=== PATIENT | female | born 1970 | race Hispanic/Latino ===

== ENCOUNTER 2017-07-17 09:02 | Emergency (ER) | payer MEDICARE, OTHER ==
[2017-07-17 09:16] VITALS: BP 130/92; PULSE 108; RESP 16; TEMP 98.1; O2SAT 95
--- NOTE | 2017-07-17 10:28 | ED PDOC ---
HPI: Psych/Substance Abuse Time Seen by Provider: 07/17/17 09:18 Chief Complaint (Nursing): Psychiatric Evaluation History Per: Patient (states she was hearing bad voices this morning. she is feeling better. she denies SI/HI.) History/Exam Limitations: no limitations Onset/Duration Of Symptoms: Sudden Onset Current Symptoms Are (Timing): Better Suicide/Self Injury Attempted (Context): None Modifying Factor(s): None Severity: Moderate Associated Symptoms: Anxiety. denies: Anger, Agitation, Depression, Paranoia, Suicidal Thoughts, Suicidal Plan Past Medical History Vital Signs: Last Vital Signs Temp 98.1 F 07/17/17 09:13 Pulse 108 H 07/17/17 09:13 Resp 16 07/17/17 09:13 BP 130/92 H 07/17/17 09:13 Pulse Ox 95 07/17/17 09:13 - Medical History PMH: Asthma, Bipolar Disorder, Diabetes (diet controlled), Schizophrenia Denies: Hepatitis, HIV, HTN, Seizures, Sexually Transmitted Disease - Family History Family History: States: Unknown Family Hx - Home Medications Home Medications: Ambulatory Orders Medication Instructions Recorded ARIPiprazole [Abilify] 01/11/17 Divalproex [Depakote ER(ONCE 01/11/17 DAILY)] Ziprasidone [Geodon Cap] 01/11/17 fluvoxaMINE [Luvox] 01/11/17 - Allergies Allergies/Adverse Reactions: Allergies Allergy/AdvReac Type Severity Reaction Status Date / Time No Known Allergies Allergy Verified 04/20/16 10:49 Review of Systems ROS Statement: Except As Marked, All Systems Reviewed And Found Negative Constitutional: Negative for: Fever Psych: Positive for: Anxiety. Negative for: Suicidal ideation, Withdrawal Physical Exam - Reviewed Nursing Documentation Reviewed: Yes Vital Signs Reviewed: Yes - Physical Exam Appears: Positive for: Well, Non-toxic, No Acute Distress Head Exam: Positive for: ATRAUMATIC, NORMAL INSPECTION, NORMOCEPHALIC Skin: Positive for: Normal Color, Warm, DRY Eye Exam: Positive for: Normal appearance, EOMI, PERRL ENT: Positive for: Normal ENT Inspection Neck: Positive for: Normal, Painless ROM Cardiovascular/Chest: Positive for: Regular Rate, Rhythm Respiratory: Positive for: CNT, Normal Breath Sounds Gastrointestinal/Abdominal: Positive for: Normal Exam, Bowel Sounds, Soft Back: Positive for: Normal Inspection Extremity: Positive for: Normal ROM Neurologic/Psych: Positive for: Alert, Oriented - ECG O2 Sat by Pulse Oximetry: 95 Disposition - Clinical Impression Clinical Impression: Schizophrenia - Patient ED Disposition Is Patient to be Admitted: No Doctor Will See Patient In The: Office Counseled Patient/Family Regarding: Diagnosis, Need For Followup - Disposition Referrals: [facility] [Outside] Disposition Time: 10:00 Condition: STABLE Additional Instructions: Continue your medications as prescribed. Instructions: Schizophrenia (ED) Forms: [employer] Connect (German) - POA Present On Arrival: None
== END 2017-07-17 10:37 | disposition home or self-care (01) ==
LOC: H.ER 09:02
DX: F20.9 Schizophrenia, unspecified (principal); E11.9 Type 2 diabetes mellitus without complications; F31.9 Bipolar disorder, unspecified

== ENCOUNTER 2017-07-22 21:00 | Inpatient (IN) | payer MEDICARE, SELFPAY ==
--- NOTE | 2017-07-22 21:49 | ED PDOC ---
HPI: Psych/Substance Abuse Time Seen by Provider: 07/22/17 21:23 Chief Complaint (Nursing): Psychiatric Evaluation Chief Complaint (Provider): Psych evaluation History Per: Patient History/Exam Limitations: no limitations Onset/Duration Of Symptoms: Hrs Additional Complaint(s): Patient is a 46 y/o female with a past medical history of schizophrenia presenting to the emergency department for a psych evaluation with complaints of feeling unwell, tactile hallucinations, and thoughts of . States that she is non-compliant with her medication (Geodon). Denies homicidal ideation, visual or auditory hallucinations. PCP: none provided. Past Medical History Reviewed: Historical Data, Nursing Documentation, Vital Signs Vital Signs: Last Vital Signs Temp 97.9 F 07/22/17 21:19 Pulse 82 07/22/17 21:19 Resp 16 07/22/17 21:19 BP 136/81 07/22/17 21:19 Pulse Ox 98 07/22/17 21:19 - Medical History PMH: Asthma, Bipolar Disorder, Diabetes (diet controlled), Schizophrenia Denies: Hepatitis, HIV, HTN, Seizures, Sexually Transmitted Disease - Family History Family History: States: Unknown Family Hx - Social History Current smoker - smoking cessation education provided: No Ex-Smoker (has not smoked in the last 12 months): No Alcohol: None Drugs: Denies - Home Medications Home Medications: Ambulatory Orders Medication Instructions Recorded Albuterol HFA [Ventolin HFA 90 1 puff INH PRN PRN 07/22/17 mcg/actuation (8 g)] Ziprasidone [Geodon] 60 mg PO BID 07/22/17 - Allergies Allergies/Adverse Reactions: Allergies Allergy/AdvReac Type Severity Reaction Status Date / Time No Known Allergies Allergy Verified 04/20/16 10:49 Review of Systems ROS Statement: Except As Marked, All Systems Reviewed And Found Negative Psych: Positive for: Other (tactile hallucinations, thoughts of , no active plan of SI, and no visual/auditory hallucinations) Physical Exam - Reviewed Nursing Documentation Reviewed: Yes Vital Signs Reviewed: Yes - Physical Exam Appears: Positive for: Well, Non-toxic Head Exam: Positive for: ATRAUMATIC, NORMAL INSPECTION, NORMOCEPHALIC Skin: Positive for: Normal Color, Warm, Dry Eye Exam: Positive for: Normal appearance Neck: Positive for: Normal, Painless ROM, Supple Respiratory: Negative for: Accessory Muscle Use, Respiratory Distress Neurologic/Psych: Positive for: Alert (with normal thought processing), Oriented (x3) - Laboratory Results Result Diagrams: 07/22/17 21:48 07/22/17 22:40 - ECG ECG Rhythm: Positive for: Normal QRS, Normal ST Segment O2 Sat by Pulse Oximetry: 98 (RA) Pulse Ox Interpretation: Normal Medical Decision Making Medical Decision Making: Time: 19:48 Initial impression: Psych evaluation Initial plan: Labs ED Urine Crisis evaluation 1:1 Sitter for patient and staff safety Reevaluation Pt will be admitted for schizoaffective d/o under MD Amanuel Scribe Attestation: Documented by Deanne Parks, acting as a scribe for FEMI Rodriguez. Provider Scribe Attestation: All medical record entries made by the Scribe were at my direction and personally dictated by me. I have reviewed the chart and agree that the record accurately reflects my personal performance of the history, physical exam, medical decision making, and the department course for this patient. I have also personally directed, reviewed, and agree with the discharge instructions and disposition. Disposition - Clinical Impression Clinical Impression: Schizoaffective disorder - Patient ED Disposition Is Patient to be Admitted: Yes - Disposition Disposition Time: 23:12 Condition: STABLE Forms: [employer] (Armenian) - Pt Status Changed To: Hospital Disposition Of: Inpatient - Admit Certification Admit to Inpatient:: After my assessment, the patient will require hospitalization for at least two midnights. This is because of the severity of symptoms shown, intensity of services needed, and/or the medical risk in this patient being treated as an outpatient.
[2017-07-22 22:38] LABS: BASO # 0.1 K/uL (0.0-0.2); BASO % 0.9 % (0.0-2.0); EOS # 0.1 K/uL (0.0-0.7); EOS % 1.1 % (0.0-4.0); HEMATOCRIT 38.9 % (34.0-47.0); LYMPH # 2.6 K/uL (1.0-4.3); LYMPH % 30.8 % (20.0-40.0); MEAN CELL VOLUME 80.8 fl (81.0-99.0); MEAN CORPUSCULAR HEMOGLOBIN 27.4 pg (27.0-31.0); MEAN PLATELET VOLUME 7.9 fl (7.2-11.7); MONO # 0.5 K/uL (0.0-0.8); MONO % 6.5 % (0.0-10.0); NEUT # 5.1 K/uL (1.8-7.0); NEUT % 60.7 % (50.0-75.0); RED CELL DISTRIBUTION WIDTH 13.7 % (11.5-14.5); WHITE BLOOD COUNT 8.4 K/uL (4.8-10.8)
[2017-07-22 22:50] LABS: ALB/GLOB RATIO 1.4 (1.0-2.1); ALCOHOL SERUM < 10 mg/dl (0-10); ALKALINE PHOSPHATASE 87 U/L (38-126); ALT/SGPT 54 U/L (9-52); AST/SGOT 25 U/L (14-36); BILIRUBIN,TOTAL 0.4 mg/dl (0.2-1.3); BLOOD UREA NITROGEN 10 mg/dl (7-17); CALCIUM 9.4 mg/dL (8.4-10.2); CARBON DIOXIDE 23 mmol/L (22-30); CHLORIDE 101 mmol/L (98-107); GFR AFRICAN-AMERICAN > 60; GLUCOSE,RANDOM 277 mg/dL (65-105); POTASSIUM 3.9 MMOL/L (3.6-5.0); SODIUM 137 mmol/l (132-148); TOTAL PROTEIN 7.5 G/DL (6.3-8.2)
[2017-07-23 01:26] VITALS: O2SAT 99
--- NOTE | 2017-07-23 01:51 | PCM.BM ---
Treatment Plan Problems - Problems identified on initial assessmt Medication nonadherence Date Initiated: 07/23/17 Time Initiated: 01:51 Assessment reference: NA Status: Active Auditory Hallucinations Date Initiated: 07/23/17 Time Initiated: 01:52 Assessment reference: NA Status: Active Tactile Hallucinations Date Initiated: 07/23/17 Time Initiated: 01:53 Assessment reference: NA Status: Active Treatment assets and liabiliti Patient Assests: cooperative, educated, negotiates basic needs, financial stabiity, cognitively intact Patient Liabilities: live alone - Milieu Protocol Maintain good personal hygiene: daily Encourage regular showers, daily Remind patient to perform daily oral care, every shift Assist patient to perform ADL's Maintain personal safety: every shift Educate patient to report safety concerns to staff, every shift Monitor environment for contraband/sharps Medication safety: Monitor for expected outcome, potential side effects: every shift, Assess barriers to learning: every shift, Assess readiness for medication education: every shift
[2017-07-23] MEDS ORDERED: DiphenhydrAMINE 50 mg/ml Inj IM PRN (02:01)
[2017-07-23] MEDS ORDERED: Magnesium Hydroxide Susp 30 ml UD PO PRN (02:01)
[2017-07-23] MEDS ORDERED: Dextrose 50% SYRINGE Inj (50 ml) IV PRN (07:59)
[2017-07-23] MEDS ORDERED: Glucagon Recombinant 1 mg Inj IM PRN (07:59)
[2017-07-23 08:26] LABS: T4 12.3 ug/dl (5.5-11.0)
--- NOTE | 2017-07-23 08:34 | CP.PCM.CON ---
History of Present Illness - History of Present Illness History of Present Illness: 46 yo F w PMHx of Schizophrenia, DM2, and mild intermittent asthma is admitted for auditory hallucinations. She states hearing voices telling her "G-d is sick and not doing well." She denies instructions to harm herself or others. Additionally, she has not been given any medication for her DM bc she hasn't followed up with a PMD in several years. She denies any polydypsia, polyuria, dysuria, respiratory problems, SOB, wheezing, or coughing. States her reason for coming in for treatment is due to a desire to finally feel better and stop hearing her voices. Otherwise, she denies fevers/chills, n/v/d, chest pain, or abdominal pain. PMHx/PSHx: Schizophrenia, DM2, Mild intermittent asthma NKDA SHx: denies etoh, cigarettes, illicit drugs ED Course: -CBC -CMP -etoh -Utox -CXR -EKG Review of Systems - Review of Systems Review of Systems: see HPI Past Patient History - Infectious Disease Hx of Infectious Diseases: None - Past Social History Alcohol: None Drugs: Denies - CARDIAC Hx Cardiac Disorders: No Hx Hypertension: No - PULMONARY Hx Asthma: Yes - NEUROLOGICAL Hx Neurological Disorder: No Hx Seizures: No - HEENT Hx HEENT Problems: No - RENAL Hx Chronic Kidney Disease: No - ENDOCRINE/METABOLIC Hx Endocrine Disorders: Yes Hx Diabetes Mellitus Type 2: Yes (diet controlled) - HEMATOLOGICAL/ONCOLOGICAL Hx Blood Disorders: No Hx Human Immunodeficiency Virus (HIV): No - INTEGUMENTARY Hx Dermatological Problems: No - MUSCULOSKELETAL/RHEUMATOLOGICAL Hx Musculoskeletal Disorders: No - GASTROINTESTINAL Hx Gastrointestinal Disorders: No - GENITOURINARY/GYNECOLOGICAL Hx Sexually Transmitted Disorders: No - PSYCHIATRIC Hx Schizophrenia: Yes Hx Substance Use: No - SURGICAL HISTORY Hx Surgeries: No Hx Tubal Ligation: Yes Other/Comment: VAGINAL SX A CHILD - ANESTHESIA Hx Anesthesia: No Meds Allergies/Adverse Reactions: Allergies Allergy/AdvReac Type Severity Reaction Status Date / Time No Known Allergies Allergy Verified 04/20/16 10:49 - Medications Medications: Current Medications Acetaminophen (Tylenol 325mg Tab) 650 mg PO Q4 PRN PRN Reason: Pain, moderate (4-7) Al Hydrox/Mg Hydrox/Simethicone (Maalox Plus 30 Ml) 30 ml PO Q4 PRN PRN Reason: Dyspepsia Dextrose (Dextrose 50% Inj) 0 ml IV STAT PRN; Protocol PRN Reason: Hyglycemia Protocol Dextrose (Glutose 15) 0 gm PO ONCE PRN; Protocol PRN Reason: Hypoglycemia Protocol Diphenhydramine HCl (Benadryl) 50 mg IM Q6 PRN PRN Reason: Extrapyramidal S/S Unable PO Diphenhydramine HCl (Benadryl) 50 mg PO HS PRN PRN Reason: Sleep Glucagon (Glucagen Diagnostic Kit) 0 mg IM STAT PRN; Protocol PRN Reason: Hypoglycemia Protocol Haloperidol (Haldol) 5 mg PO Q4 PRN PRN Reason: Agitation Haloperidol Lactate (Haldol) 5 mg IM Q4 PRN PRN Reason: Agitation, Unable to Take PO Insulin Human Regular (Humulin R) 0 units SC ACHS CHARLES PRN Reason: Protocol Lorazepam (Ativan) 2 mg IM Q4 PRN PRN Reason: Anxiety/Agitation,Unable PO Lorazepam (Ativan) 2 mg PO Q4 PRN PRN Reason: Anxiety/Agitation Magnesium Hydroxide (Milk Of Magnesia) 30 ml PO HS PRN PRN Reason: Constipation Physical Exam - Constitutional Appears: Non-toxic, No Acute Distress - Head Exam Head Exam: ATRAUMATIC, NORMOCEPHALIC - Eye Exam Eye Exam: EOMI - ENT Exam ENT Exam: Mucous Membranes Dry - Neck Exam Neck exam: Positive for: Full Rom - Respiratory Exam Respiratory Exam: Clear to Auscultation Bilateral, NORMAL BREATHING PATTERN - Cardiovascular Exam Cardiovascular Exam: REGULAR RHYTHM, +S1, +S2 - GI/Abdominal Exam GI & Abdominal Exam: Normal Bowel Sounds, Soft. absent: Tenderness - Extremities Exam Extremities exam: Negative for: calf tenderness - Neurological Exam Neurological exam: Alert, CN II-XII Intact, Oriented x3 Results - Vital Signs Recent Vital Signs: Last Vital Signs Temp 98.3 F 07/23/17 01:24 Pulse 76 07/23/17 01:24 Resp 18 07/23/17 01:34 BP 119/76 07/23/17 01:24 Pulse Ox 99 07/23/17 01:24 - Labs Result Diagrams: 07/22/17 21:48 07/22/17 22:40 Labs: Laboratory Results - last 24 hr 07/23/17 07:45 Triglycerides 180 H D Cholesterol 249 H LDL Cholesterol Direct 188 H HDL Cholesterol 44 Assessment & Plan - Assessment and Plan (Free Text) Plan: 46 yo F w PMHx of Schizophrenia, DM2, and mild intermittent asthma is admitted for auditory hallucinations 1) DM2 -Uncontrolled -Chol 249, TriG 180, LDL 188, HDL 44 -MDSS -f/u FS ACHS -f/u Hgb A1C -f/u TSH -f/u FT3, FT4 -Will consider adding Metformin based on results of above 2) Asthma -Mild, Intermittent -Duoneb 3mL INH RQ6H PRN 3) Schizophrenia -Continue as per Psychiatric Team -Utox negative -etoh negative -f/u RPR 4) DVT Prophylaxis -Lovenox 40mg SC HS
[2017-07-23 08:40] LABS: THYROID STIMULATING HORMONE 1.77 mIU/ML (0.46-4.68)
[2017-07-23] MEDS ORDERED: Albuterol-Ipratrop 3 mg / 0.5 (3 ml) UD INH PRN (08:57)
--- NOTE | 2017-07-23 09:19 | RAD ---
HISTORY: medical exam COMPARISON: Comparison made with chest radiographs 04/20/2016 FINDINGS: LUNGS: Poor inspiration with low lung volumes minor crowded bronchovascular markings and bibasilar atelectasis. PLEURA: No significant pleural effusion identified, no pneumothorax apparent. CARDIOVASCULAR: Normal. OSSEOUS STRUCTURES: No significant abnormalities. VISUALIZED UPPER ABDOMEN: Normal. OTHER FINDINGS: None. IMPRESSION: Poor inspiration with low lung volumes minor crowded bronchovascular markings and bibasilar atelectasis.
--- NOTE | 2017-07-23 10:32 | PCM.PSYCH ---
Initial Psychiatric Evaluation - Initial Psychiatric Evaluation Type of Admission: Voluntary Legal Status: Capacity Chief Complaint (in patient's own words): i need a break from this town Patient's Reaction to Hospitalization: cooperative History of Present Illness and Precipitating Events: 46 yo female dx with schizoaffective disorder, states she is seeing dr. santos/mick at the clinic. she states she is a patient [place] [facility] [place] she reports no recent hospitalizations and reports taking geodon 60mg bid. she presented to the ER seeking admission. pt was reporting visual and tactile hallucinations. pt reports she has voices that talk about her, are persistent and insist on talking to her despite her attempts to annoy her. she reports feeling anxious and overwhelmed in the community and having trouble sleeping. she denies any active suicidal thoughts. denies substance abuse. Current Medications: Active Medications Generic Name Dose Route Start Last Admin Trade Name Freq PRN Reason Stop Dose Admin Acetaminophen 650 mg 07/23/17 02:01 Tylenol 325mg Tab PO Q4 PRN Pain, moderate (4-7) Al Hydrox/Mg Hydrox/Simethicone 30 ml 07/23/17 02:01 Maalox Plus 30 Ml PO Q4 PRN Dyspepsia Albuterol/Ipratropium 3 ml 07/23/17 08:57 Duoneb 3 Mg/0.5 Mg (3 Ml) Ud INH RQ6 PRN Shortness of Breath Dextrose 0 ml 07/23/17 07:59 Dextrose 50% Inj IV STAT PRN Hyglycemia Protocol Protocol Dextrose 0 gm 07/23/17 07:59 Glutose 15 PO ONCE PRN Hypoglycemia Protocol Protocol Diphenhydramine HCl 50 mg 07/23/17 02:01 Benadryl IM Q6 PRN Extrapyramidal S/S Unable PO Diphenhydramine HCl 50 mg 07/23/17 02:25 Benadryl PO HS PRN Sleep Enoxaparin Sodium 40 mg 07/23/17 22:00 Lovenox SC HS CHARLES Protocol Glucagon 0 mg 07/23/17 07:59 Glucagen Diagnostic Kit IM STAT PRN Hypoglycemia Protocol Protocol Haloperidol 5 mg 07/23/17 02:01 Haldol PO Q4 PRN Agitation Haloperidol Lactate 5 mg 07/23/17 02:01 Haldol IM Q4 PRN Agitation, Unable to Take PO Insulin Human Regular 0 units 07/23/17 11:30 Humulin R SC ACHS CHARLES Protocol Lorazepam 2 mg 07/23/17 02:01 Ativan IM Q4 PRN Anxiety/Agitation,Unable PO Lorazepam 2 mg 07/23/17 02:01 Ativan PO Q4 PRN Anxiety/Agitation Magnesium Hydroxide 30 ml 07/23/17 02:01 Milk Of Magnesia PO HS PRN Constipation Ziprasidone 60 mg 07/23/17 10:30 Geodon PO DAILY CHARLES Ziprasidone 80 mg 07/23/17 22:00 Geodon PO HS CHARLES Past Psychiatric History - Past Psychiatric History Previous Treatment History: Inpatient Prior Professional Help: reports being hospitalized "many years ago" Prior Psychiatric Treatment: seen in outpt clinic Nature of Treatment: states she likes current meds, states she was on abilify, depakote in past History of Abuse: does not want to discuss History of ETOH/Drug Use: denies using illicit substances History of Family Illness: unknown Pertinent Medical Hx (Current Medical&Sleep Prob, Allergies): Allergies Allergy/AdvReac Type Severity Reaction Status Date / Time No Known Allergies Allergy Verified 04/20/16 10:49 Albuterol HFA [Ventolin HFA 90 mcg/actuation (8 g)] 1 puff INH PRN PRN 07/22/17 Ziprasidone [Geodon] 60 mg PO BID 07/22/17 Review of Systems - Psychiatric Psychiatric: As Per HPI Mental Status Examination - Personal Presentation Personal Presentation: Looks stated age Additional comments: odd appearance - Affect Affect: Blunted - Motor Activity Motor Activity: Calm - Reliability in Providing Information Reliability in Providing Information: Good - Speech Speech: Organized - Mood Mood: Depressed - Formal Thought Process Formal Thought Process: Hallucinations, Delusions, Loosening of associations - Hallucinations/Delusions Hallucinations: Visual - Obsessions/Compulsions Obsessions: Yes Compulsions: Yes - Cognitive Functions Orientation: Person, Place, Situation, Time Sensorium: Alert Attention/Concentration: Attentive Abstract Thinking: [place] Estimate of Intelligence: Average Judgement: Intact, as evidence by: Insight regarding need for hospitalization Memory: Recent intact, as evidence by: Ability to recall events of the day, Remote intact, as evidenced by: Abilit to recall sig. life events - Risk Risk: Suicidal (denies suicidal thoughts), Diminished functioning - Strength & Assets Inventory Strength & Assets Inventory: Intelligence - Limitations Limitations: Living alone DSM 5 DX - DSM 5 DSM 5 Diagnosis: schizoaffective disorder - Recommended/Plan of Treatment Treatment Recommendations and Plan of Treatment: admit to [facility] for safety and observation gather collateral information provide supportive therapy adjust medications- increase geodon to 80mg bid, check ekg remeron prn for insomnia- have discussed r/b/se with pt who agrees hospitalist consult disposition planning Projected ELOS: 5-7 days Prognosis: fair - Smoking Cessation Smoking Cessation Initiated: No Reason for not providing: does not smoke
[2017-07-23] MEDS: Insulin Regular 100 units/ml SC SCH ×3 (12:34→21:32)
--- NOTE | 2017-07-23 21:07 | CARD ---
APPROVED REPORT EKG Measurement Heart [id number] <Conclusion> Normal sinus rhythm Minimal voltage criteria for LVH, may be normal variant Borderline ECG
[2017-07-23] MEDS ORDERED: Enoxaparin 40 mg Syringe SC SCH (22:00)
[2017-07-23] MEDS: Alum-Mag Hydrox-Simethicone Susp (30 mL) PO PRN (22:08)
[2017-07-24] MEDS: Insulin Regular 100 units/ml SC SCH ×4 (08:27→21:03)
--- NOTE | 2017-07-24 12:12 | PCM.PYCHPN ---
Psychiatric Progress Note - Psychiatric Progress Note Patient seen today, length of contact: discussed with team Patient Chief Complaint: i am okay Problems Identified/Issues Discussed: no complaints of medication side effects. isolates in room. continues to have auditory hallucinations. Medication Change: No Medical Record Reviewed: Yes Mental Status Examination - Cognitive Function Orientation: Person, Place, Situation, Time Memory: Intact Attention: WNL Concentration: WNL Association: WNL Fund of Knowledge: WNL - Mood Mood: Depressed - Affect Affect: Blunted - Speech Speech: Appropriate - Formal Thought Process Formal Thought Process: Hallucinations, Delusions, Loosening of associations - Suicidal Ideation Suicidal Ideation: No - Homicidal Ideation Homicidal Ideation: No Goal/Treatment Plan - Goal/Treatment Plan Need for Continued Stay: Remain at risks for inpatient hospitalization Progress Toward Problem(s) and Goals/Treatment Plan: schizoaffective disorder continue current treatment t/c increasing geodon to 80mg bid tomorrow qtc is 470 Estimated Date of D/C: 07/26/17
[2017-07-24] MEDS: Alum-Mag Hydrox-Simethicone Susp (30 mL) PO PRN (15:36)
--- NOTE | 2017-07-25 08:32 | CP.PCM.PN ---
Subjective - Date & Time of Evaluation Date of Evaluation: 07/25/17 Time of Evaluation: 08:20 - Subjective Subjective: 46 y/o F admitted to psychiatric unit for auditory hallucinations, consulted to us for medical management. Today, pt reports feeling well with NO acute events overnight. Pt is able to eat, good appetite, ambulate without difficulties, with NO urinary complaints. Pt denies fever, headaches, CP, SOB, N/V, abdominal pain, change in bowel movement, dysuria, urinary frequency or peripheral edema. Objective - Vital Signs/Intake and Output Vital Signs (last 24 hours): Temp Pulse Resp BP Pulse Ox 97.3 F L 100 H 20 131/84 99 07/24/17 20:00 07/24/17 20:00 07/24/17 20:00 07/24/17 20:00 07/23/17 01:24 - Medications Medications: Current Medications Acetaminophen (Tylenol 325mg Tab) 650 mg PO Q4 PRN PRN Reason: Pain, moderate (4-7) Al Hydrox/Mg Hydrox/Simethicone (Maalox Plus 30 Ml) 30 ml PO Q4 PRN PRN Reason: Dyspepsia Last Admin: 07/24/17 15:36 Dose: 30 ml Albuterol/Ipratropium (Duoneb 3 Mg/0.5 Mg (3 Ml) Ud) 3 ml INH RQ6 PRN PRN Reason: Shortness of Breath Dextrose (Dextrose 50% Inj) 0 ml IV STAT PRN; Protocol PRN Reason: Hyglycemia Protocol Dextrose (Glutose 15) 0 gm PO ONCE PRN; Protocol PRN Reason: Hypoglycemia Protocol Diphenhydramine HCl (Benadryl) 50 mg IM Q6 PRN PRN Reason: Extrapyramidal S/S Unable PO Diphenhydramine HCl (Benadryl) 50 mg PO HS PRN PRN Reason: Sleep Glucagon (Glucagen Diagnostic Kit) 0 mg IM STAT PRN; Protocol PRN Reason: Hypoglycemia Protocol Haloperidol (Haldol) 5 mg PO Q4 PRN PRN Reason: Agitation Haloperidol Lactate (Haldol) 5 mg IM Q4 PRN PRN Reason: Agitation, Unable to Take PO Insulin Human Regular (Humulin R) 0 units SC ACHS CHARLES PRN Reason: Protocol Last Admin: 07/24/17 21:03 Dose: 3 unit Lorazepam (Ativan) 2 mg IM Q4 PRN PRN Reason: Anxiety/Agitation,Unable PO Lorazepam (Ativan) 2 mg PO Q4 PRN PRN Reason: Anxiety/Agitation Magnesium Hydroxide (Milk Of Magnesia) 30 ml PO HS PRN PRN Reason: Constipation Metformin HCl (Glucophage) 500 mg PO BIDWM [facility] Last Admin: 07/24/17 21:21 Dose: 500 mg Ziprasidone (Geodon Cap) 60 mg PO DAILY [facility] Last Admin: 07/24/17 09:04 Dose: 60 mg Ziprasidone (Geodon) 80 mg PO HS [facility] Last Admin: 07/24/17 21:03 Dose: 80 mg - Constitutional Appears: Well, Non-toxic, No Acute Distress - Head Exam Head Exam: ATRAUMATIC, NORMAL INSPECTION - Eye Exam Eye Exam: EOMI, PERRL - ENT Exam ENT Exam: Mucous Membranes Moist, Normal Exam - Neck Exam Neck Exam: Full ROM, Normal Inspection - Respiratory Exam Respiratory Exam: Clear to Ausculation Bilateral, NORMAL BREATHING PATTERN - Cardiovascular Exam Cardiovascular Exam: REGULAR RHYTHM, +S1, +S2 - GI/Abdominal Exam GI & Abdominal Exam: Soft, Normal Bowel Sounds. absent: Tenderness Assessment and Plan - Assessment and Plan (Free Text) Assessment: 46 yo F w PMHx of Schizophrenia, DM2, and mild intermittent asthma is admitted for auditory hallucinations Plan: 1) DM2 -Uncontrolled. -Metformin 500 mg BID initiated yesterday last night. -Chol 249, TriG 180, LDL 188, HDL 44 -Thyroid profile WNL. -HbA1c 8.2. -MDSS -If discharged, pt was instructed to set appointment w/ [facility] in 2 weeks and will be provided with Metformin 500mg BID PO prescription. -Continue Metformin until appointment w/ PCP, consider increase of Metformin dosage, Statin pharmaco-therapy initiation and complete diabetic complete work- up. 2) Asthma -Mild, Intermittent - controlled. -Duoneb 3mL INH RQ6H PRN -Will evaluate asthma current status as outpatient and chronic management if needed. 3) Schizophrenia -Continue as per Psychiatric Team -Utox negative -etoh negative -RPR negative. 4) DVT Prophylaxis -Discontinued Lovenox 40mg SC HS last night.
[2017-07-25] MEDS: Insulin Regular 100 units/ml SC SCH (09:42)
[2017-07-25 10:11] VITALS: BP 125/85; PULSE 85; RESP 18; TEMP 97.4
--- NOTE | 2017-07-25 11:21 | PCM.PYCHDC ---
Mental Status Examination - Mental Status Examination Orientation: Person, Place, Situation, Time Memory: Impaired Mood: Anxious Affect: Constricted Speech: Appropriate Attention: WNL Concentration: WNL Association: Loose Fund of Knowledge: WNL Formal Thought Process: Hallucinations, Loosening of associations Description of patient's judgement and insight: fair i/j. good behavioral control Psychotic Thoughts and Behaviors: pt reports auditory hallucinations are now "saying nice things" she is internally preoccupied, but in control of behaviors and is future oriented Suicidal Ideation: No Current Homicidal Ideation?: No Plan: pt denies any suicidal or homicidal thoughts. Discharge Summary - Discharge Note Reason for Hospitalization: pt presented to ER seeking admission to get respite from"the voices and the crazy people in [place]" Psychiatric History (includes Medical, Family, Personal Hx): long standing history of schizoaffective disorder, seen at [facility] Laboratory Data: Abnormal Lab Results 07/23/17 07/24/17 07/24/17 07:45 16:29 20:50 POC Glucose (mg/dL) 349 H 360 H Hemoglobin A1c 8.2 H 07/25/17 06:01 POC Glucose (mg/dL) 236 H Hemoglobin A1c Consultations:: List each consultation separately and include: 1. Reason for request. 2. Findings. 3. Follow-up Consultations: seen by director medical affairs Summary of Hospital Course include:: 1. Description of specific treatment plan utilized for patients during their course of treatmen. 2. Summarize the time- course for resolution of acute symptoms and/or regressed behaviors. 3. Describe issues identified and worked on during hospitalization. 4. Describe medication utilized. 5. Describe medical problems identified and treated. 6. Reassessment of suicide risk Summary of Hospital Course: 46 yo female dx with schizoaffective disorder, states she is seeing dr. santos/mick at the clinic. she [place] [facility] [place] reports no recent hospitalizations and reports taking geodon 60mg bid. she presented to the ER seeking admission. pt was reporting visual and tactile hallucinations. pt reports she has voices that talk about her, are persistent and insist on talking to her despite her attempts to annoy her. she reports feeling anxious and overwhelmed in the community and having trouble sleeping. she denies any active suicidal thoughts. denies substance abuse. hospital course: admitted to [facility] and oriented to the unit. placed on routine safety protocols. seen by director medical affairs. ekg with qtc under 480 and geodon dose was increased from 60mg bid to 60mg in am and 80mg hs. pt refused further increase. she was visible in the milieu and social with her peers. she remained with auditory hallucinations and rapid speech/disorganized thoughts, but stated she was feeling much better and wanted to leave the hospital. she reported the voices were no longer negative, but actually felt they were being supportive of her. she was requesting to leave the hospital. she was denying any suicidal or homicidal thoughts at the time of discharge. - Final Diagnosis (DSM 5) Condition upon Discharge: STABLE DSM 5: schizoaffective disorder, unspecified Disposition: HOME/ ROUTINE Follow-up Treatment Plan: take medications as prescribed do not use alcohol, tobacco or other illicit substances call 911 if any suicidal or homicidal thoughts follow up with your medical doctor regarding your medical problems follow up with aftercare as directed Prescriptions/Medication Reconciliation: Ziprasidone [Geodon] 60 mg PO DAILY #15 cap Ziprasidone HCl [Geodon] 80 mg PO HS #15 capsule - Smoking Cessation Smoking Cessation Medication prescribed: No - Antipsychotic Medications Pt discharged on 2 or more routine antipsychotic medications: No
== END 2017-07-25 11:05 | disposition home or self-care (01) | DRG 885 ==
LOC: H.ER 21:00 → H.ERHOLD 23:00 → H.PSYCH 07-23 01:08
PROVIDERS: ADMIT Psychiatry & Neurology Psychiatry; ATTEND Psychiatry & Neurology Psychiatry
PROC: GZHZZZZ Group Psychotherapy (ICD-10-PCS; principal; 2017-07-22)
PROC: GZ56ZZZ Individual Psychotherapy, Supportive (ICD-10-PCS; 2017-07-22)
DX: F25.9 Schizoaffective disorder, unspecified (principal); E11.65 Type 2 diabetes mellitus with hyperglycemia; J45.20 Mild intermittent asthma, uncomplicated; Z91.14 Patient's other noncompliance with medication regimen

== ENCOUNTER 2017-08-23 20:44 | Emergency (ER) | payer MEDICARE, OTHER ==
--- NOTE | 2017-08-23 20:50 | ED PDOC ---
HPI: Psych/Substance Abuse Time Seen by Provider: 08/23/17 20:49 Chief Complaint (Nursing): Psychiatric Evaluation Chief Complaint (Provider): crisis eval History Per: Patient, EMS Additional Complaint(s): 46 year old female presents to ED for crisis eval. Patient was yelling at home and neighbors called police. Police brought patient here for crisis eval. Patient states that she was having an argument with her boyfriend and he was not treating her well so this caused her to yell. She denies any suicidal or homicidal ideation. Patient admits to yelling and being upset earlier but now feels better. She denies any current auditory or visual hallucinations but admits to this in the past. No etoh or drug use. Past Medical History Reviewed: Historical Data, Nursing Documentation, Vital Signs Vital Signs: Last Vital Signs Temp 98.4 F 08/23/17 20:45 Pulse 110 H 08/23/17 20:45 Resp 18 08/23/17 20:45 BP 147/96 H 08/23/17 20:45 Pulse Ox 99 08/23/17 20:45 - Medical History PMH: Asthma, Bipolar Disorder, Diabetes, Schizophrenia - Surgical History Surgical History: No Surg Hx - Family History Family History: States: No Known Family Hx - Living Arrangements Living Arrangements: Alone - Social History Current smoker - smoking cessation education provided: No Alcohol: None Drugs: Denies - Home Medications Home Medications: Ambulatory Orders Medication Instructions Recorded Albuterol HFA [Ventolin HFA 90 1 puff INH PRN PRN 07/22/17 mcg/actuation (8 g)] Albuterol/Ipratropium [Duoneb 3 3 ml INH RQ6 PRN 07/25/17 mg/0.5 mg (3 ml) UD] Ziprasidone HCl [Geodon] 80 mg PO HS #15 capsule 07/25/17 Ziprasidone [Geodon] 60 mg PO DAILY #15 cap 07/25/17 metFORMIN [glucOPHAGE] 500 mg PO BIDWM tab 07/25/17 - Allergies Allergies/Adverse Reactions: Allergies Allergy/AdvReac Type Severity Reaction Status Date / Time No Known Allergies Allergy Verified 08/23/17 20:45 Review of Systems Psych: Positive for: Other (brought in by Police for crisis eval). 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 Disposition - Clinical Impression Clinical Impression: Schizophrenia - Patient ED Disposition Is Patient to be Admitted: No Counseled Patient/Family Regarding: Diagnosis, Need For Followup - Disposition Referrals: [facility] [Outside] Disposition: Routine/Home Disposition Time: 22:24 Condition: STABLE Additional Instructions: Follow up as directed. Instructions: Schizophrenia (ED) Forms: [employer] (Armenian)
[2017-08-23 20:56] VITALS: BP 147/96; PULSE 110; RESP 18; TEMP 98.4; O2SAT 99
== END 2017-08-23 22:31 | disposition home or self-care (01) ==
LOC: H.ER 20:44
DX: F20.9 Schizophrenia, unspecified (principal)

== ENCOUNTER 2018-01-03 14:46 | Emergency (ER) | payer MEDICARE ==
[2018-01-03 15:27] VITALS: BP 140/75; PULSE 81; RESP 16; TEMP 98.3; O2SAT 99
--- NOTE | 2018-01-03 16:16 | ED PDOC ---
HPI: CCC, URI, Sore Throat Time Seen by Provider: 01/03/18 16:15 Chief Complaint (Nursing): Cough, Cold, Congestion Chief Complaint (Provider): cough History Per: Patient Additional Complaint(s): 47-year-old female presents with subjective fever, body aches and cough that started 4 days ago. Patient has been taking Robitussin and Tylenol but symptoms have not subsided. She denies any chest pain, shortness of breath or dyspnea on exertion. Past Medical History Reviewed: Historical Data, Nursing Documentation, Vital Signs Vital Signs: Last Vital Signs Temp 98.3 F 01/03/18 15:25 Pulse 81 01/03/18 15:25 Resp 16 01/03/18 15:25 BP 140/75 01/03/18 15:25 Pulse Ox 99 01/03/18 16:16 - Medical History PMH: Asthma, Bipolar Disorder, Diabetes, Schizophrenia - Family History Family History: States: No Known Family Hx - Social History Current smoker - smoking cessation education provided: No Alcohol: None Drugs: Denies - Home Medications Home Medications: Ambulatory Orders Medication Instructions Recorded Albuterol HFA [Ventolin HFA 90 1 puff INH PRN PRN 07/22/17 mcg/actuation (8 g)] Albuterol/Ipratropium [Duoneb 3 3 ml INH RQ6 PRN 07/25/17 mg/0.5 mg (3 ml) UD] Ziprasidone HCl [Geodon] 80 mg PO HS #15 capsule 07/25/17 Ziprasidone [Geodon] 60 mg PO DAILY #15 cap 07/25/17 metFORMIN [glucOPHAGE] 500 mg PO BIDWM tab 07/25/17 Azithromycin [Zithromax] 250 mg PO DAILY #6 tab 01/03/18 Benzonatate 200 mg PO TID PRN #20 capsule 01/03/18 Oseltamivir Phosphate [Tamiflu] 75 mg PO BID #10 capsule 01/03/18 - Allergies Allergies/Adverse Reactions: Allergies Allergy/AdvReac Type Severity Reaction Status Date / Time No Known Allergies Allergy Verified 08/23/17 20:45 Review of Systems ROS Statement: Except As Marked, All Systems Reviewed And Found Negative Constitutional: Positive for: Fever (subjective) Cardiovascular: Negative for: Chest Pain Respiratory: Positive for: Cough. Negative for: Shortness of Breath, SOB with Exertion, Wheezing Gastrointestinal: Negative for: Vomiting Physical Exam - Reviewed Nursing Documentation Reviewed: Yes Vital Signs Reviewed: Yes - Physical Exam Appears: Positive for: Well, Non-toxic, No Acute Distress Skin: Negative for: Rash Eye Exam: Positive for: Normal appearance Cardiovascular/Chest: Positive for: Regular Rate, Rhythm Respiratory: Positive for: Normal Breath Sounds. Negative for: Accessory Muscle Use, Wheezing, Respiratory Distress Gastrointestinal/Abdominal: Positive for: Soft. Negative for: Tenderness Neurologic/Psych: Positive for: Alert, Oriented - Laboratory Results Urine POC: Negative (test declined, patient is certain she is not ) - ECG O2 Sat by Pulse Oximetry: 99 Pulse Ox Interpretation: Normal Medical Decision Making Medical Decision Makin47 year old with URI symptoms/flu like symptoms Patient is afebrile, well-appearing, nontoxic-appearing. Patient will be treated empirically with Tamiflu, Zithromax, Tessalon Perles prescriptions. She was advised to take [id number] NSAIDs for fever and body aches, rest and drink plenty of fluids. Patient was instructed to follow up with clinic or primary doctor in 2-3 days. Disposition - Clinical Impression Clinical Impression: URI (upper respiratory infection) - Patient ED Disposition Is Patient to be Admitted: No Counseled Patient/Family Regarding: Diagnosis, Need For Followup, Rx Given - Disposition Referrals: [facility] [Outside] Disposition: Routine/Home Disposition Time: 17:51 Condition: STABLE Additional Instructions: Take prescription medications as directed. [id number] Tylenol and Motrin for fever and body aches. Rest and drink plenty of fluids. Follow up with primary doctor or clinic in 2-3 days. Prescriptions: Azithromycin [Zithromax] 250 mg PO DAILY #6 tab Benzonatate 200 mg PO TID PRN #20 capsule PRN Reason: Cough Oseltamivir Phosphate [Tamiflu] 75 mg PO BID #10 capsule Instructions: Upper Respiratory Infection in Children (ED) Forms: [employer] (Beninese)
== END 2018-01-03 18:33 | disposition home or self-care (01) ==
LOC: H.ER 14:46
DX: J06.9 Acute upper respiratory infection, unspecified (principal); E11.9 Type 2 diabetes mellitus without complications; Z79.84 Long term (current) use of oral hypoglycemic drugs

== ENCOUNTER 2018-10-17 03:19 | Emergency (ER) | payer MEDICARE ==
[2018-10-17 03:33] VITALS: RESP 18; TEMP 97.5
[2018-10-17 04:21] VITALS: PULSE 90
[2018-10-17 04:25] VITALS: O2SAT 97
--- NOTE | 2018-10-17 04:25 | ED PDOC ---
HPI: Psych/Substance Abuse Time Seen by Provider: 10/17/18 03:52 Chief Complaint (Nursing): Psychiatric Evaluation Chief Complaint (Provider): Psychiatric Evaluation History Per: Patient History/Exam Limitations: no limitations Additional Complaint(s): 47 year old female, with a past medical history of schizophrenia, presents to the ED by EMS after neighbors called 911 to file a noise complaint. According to the medical record, EMS stated patient was calm and cooperative from their initial counter with them. Patient states earlier today, she was speaking on the phone and neighbors thought she was speaking too loudly prompting them to call 911. She states she is compliant with her medication, Geodon, and follows up with the [facility]. Denies any medical complaints, SI, HI, auditory hallucination, visual hallucinations, depression, or anxiety. PMD: [facility] Past Medical History Reviewed: Historical Data, Nursing Documentation, Vital Signs Vital Signs: Last Vital Signs Temp 97.5 F L 10/17/18 03:25 Pulse 110 H 10/17/18 03:25 Resp 18 10/17/18 03:25 BP Pulse Ox 97 10/17/18 03:25 - Medical History PMH: Asthma, Bipolar Disorder, Depression, Diabetes, Schizophrenia Denies: Hepatitis, HIV, HTN, Chronic Kidney Disease, Seizures, Sexually Transmitted Disease - Surgical History Surgical History: No Surg Hx - Family History Family History: States: Unknown Family Hx - Home Medications Home Medications: Ambulatory Orders Medication Instructions Recorded Albuterol HFA [Ventolin HFA 90 1 puff INH PRN PRN 07/22/17 mcg/actuation (8 g)] Albuterol/Ipratropium [Duoneb 3 3 ml INH RQ6 PRN 07/25/17 mg/0.5 mg (3 ml) UD] Ziprasidone HCl [Geodon] 80 mg PO HS #15 capsule 07/25/17 Ziprasidone [Geodon] 60 mg PO DAILY #15 cap 07/25/17 metFORMIN [glucOPHAGE] 500 mg PO BIDWM tab 07/25/17 Azithromycin [Zithromax] 250 mg PO DAILY #6 tab 01/03/18 Benzonatate 200 mg PO TID PRN #20 capsule 01/03/18 Oseltamivir Phosphate [Tamiflu] 75 mg PO BID #10 capsule 01/03/18 - Allergies Allergies/Adverse Reactions: Allergies Allergy/AdvReac Type Severity Reaction Status Date / Time No Known Allergies Allergy Verified 08/23/17 20:45 Review of Systems ROS Statement: Except As Marked, All Systems Reviewed And Found Negative Psych: Negative for: Anxiety, Depression, Suicidal ideation (and homicidal ideation), Other (auditory and visual hallucination) Physical Exam - Reviewed Nursing Documentation Reviewed: Yes Vital Signs Reviewed: Yes - Physical Exam Appears: Positive for: Non-toxic, No Acute Distress (malodorous, calm and cooperative) Head Exam: Positive for: ATRAUMATIC, NORMOCEPHALIC Skin: Positive for: Normal Color, Warm, Dry Eye Exam: Positive for: Normal appearance Neck: Positive for: Normal, Painless ROM Cardiovascular/Chest: Positive for: Regular Rate, Rhythm. Negative for: Murmur Respiratory: Positive for: Normal Breath Sounds. Negative for: Wheezing, Respiratory Distress Gastrointestinal/Abdominal: Positive for: Normal Exam, Soft. Negative for: Tenderness Extremity: Positive for: Normal ROM. Negative for: Other (pain on calf squeeze) Neurologic/Psych: Positive for: Alert, Oriented. Negative for: Motor/Sensory Deficits - ECG O2 Sat by Pulse Oximetry: 97 (RA) Pulse Ox Interpretation: Normal Medical Decision Making Medical Decision Making: Initial Impression: Psychiatric evaluation Initial Plan: --Crisis evaluation due to reported abnormal behavior Patient showing no abnormal behavior at this time. Patient has no physical or mental complaints with disposition pending crisis evaluation. 04:29 Patient cleared for discharge by Dr. Zapata. Scribe Attestation: Documented by Elliot Montes acting as a scribe for Rahel Sadler MD. Provider Scribe Attestation: All medical record entries made by the Scribe were at my direction and personally dictated by me. I have reviewed the chart and agree that the record accurately reflects my personal performance of the history, physical exam, medical decision making, and the department course for this patient. I have also personally directed, reviewed, and agree with the discharge instructions and disposition. Disposition - Clinical Impression Clinical Impression: Schizoaffective disorder - Patient ED Disposition Is Patient to be Admitted: No - Disposition Disposition: Routine/Home Disposition Time: 04:19 Condition: STABLE Additional Instructions: Follow up with primary medical doctor as previously scheduled for this week. Return to the emergency department at any time if you develop pain, trouble breathing, hallucinations, or other feelings of discomfort. Instructions: Schizoaffective Disorder (DC) Forms: [employer] (Mexican) Print Language: SINHALA
== END 2018-10-17 04:26 | disposition home or self-care (01) ==
LOC: H.ER 03:19
DX: F25.9 Schizoaffective disorder, unspecified (principal); E11.9 Type 2 diabetes mellitus without complications; Z79.84 Long term (current) use of oral hypoglycemic drugs; F31.9 Bipolar disorder, unspecified

== ENCOUNTER 2019-01-21 02:55 | Emergency (ER) | payer MEDICARE ==
[2019-01-21 03:16] VITALS: BP 138/87; PULSE 89; RESP 16; TEMP 97.6; O2SAT 97
--- NOTE | 2019-01-21 05:36 | ED PDOC ---
HPI: Influenza Time Seen by Provider: 01/21/19 03:38 Chief Complaint: Flu-like Symptoms Chief Complaint (Provider): URI symptoms History Per: Patient Exam Limitations: no limitations (Pt presents to the ED complaining of symptoms for over a week that include sore throat, headache, bodyache, and nasal congestion as well as ear pain; pt denies fever) Past Medical History Reviewed: Historical Data, Nursing Documentation, Vital Signs Vital Signs: Last Vital Signs Temp 97.6 F 01/21/19 03:09 Pulse 89 01/21/19 03:09 Resp 16 01/21/19 03:09 BP 138/87 01/21/19 03:09 Pulse Ox 97 01/21/19 03:09 - Medical History PMH: Asthma, Bipolar Disorder, Depression, Diabetes, Schizophrenia Denies: Hepatitis, HIV, HTN, Chronic Kidney Disease, Seizures, Sexually Transmitted Disease - Family History Family History: States: Unknown Family Hx - Home Medications Home Medications: Ambulatory Orders Medication Instructions Recorded Albuterol HFA [Ventolin HFA 90 1 puff INH PRN PRN 07/22/17 mcg/actuation (8 g)] Albuterol/Ipratropium [Duoneb 3 3 ml INH RQ6 PRN 07/25/17 mg/0.5 mg (3 ml) UD] Ziprasidone HCl [Geodon] 80 mg PO HS #15 capsule 07/25/17 Ziprasidone [Geodon] 60 mg PO DAILY #15 cap 07/25/17 metFORMIN [glucOPHAGE] 500 mg PO BIDWM tab 07/25/17 Azithromycin [Zithromax] 250 mg PO DAILY #6 tab 01/03/18 Benzonatate 200 mg PO TID PRN #20 capsule 01/03/18 Oseltamivir Phosphate [Tamiflu] 75 mg PO BID #10 capsule 01/03/18 - Allergies Allergies/Adverse Reactions: Allergies Allergy/AdvReac Type Severity Reaction Status Date / Time No Known Allergies Allergy Verified 01/21/19 03:16 Review of Systems ROS Statement: Except As Marked, All Systems Reviewed And Found Negative ENT: Positive for: Ear Pain, Nose Congestion Neurological: Positive for: Headache Physical Exam - Reviewed Nursing Documentation Reviewed: Yes Vital Signs Reviewed: Yes - Physical Exam Appears: Positive for: Well, Non-toxic, No Acute Distress. Negative for: Uncomfortable Head Exam: Positive for: ATRAUMATIC, NORMAL INSPECTION Skin: Positive for: Normal Color, Warm, Dry. Negative for: Diaphoresis, Pallor, Rash Eye Exam: Positive for: Normal appearance, PERRL. Negative for: Nystagmus, Periorbital swelling, Periorbital tenderness ENT: Positive for: Nasal Congestion, Other (the airway is open and patent; the patient is swallowing her secretions without assistance and there is no abscess). Negative for: Sinus Pain/Drainage, Pharyngeal Erythema, Tonsillar Exudate, Tonsillar Swelling Neck: Positive for: Normal, Supple Cardiovascular/Chest: Positive for: Regular Rate, Rhythm Respiratory: Positive for: Normal Breath Sounds. Negative for: Stridor, Wheezing, Respiratory Distress Pulses-Carotid (L): 2+ Pulses-Carotid (R): 2+ Pulses-Radial (L): 2+ Pulses-Radial (R): 2+ Medical Decision Making Medical Decision Making: I: URI P: R/O influenza and strep influenza swab strep swab All diagnostics negative; Pt is stable for discharge Pt is safe for dischage - ECG O2 Sat by Pulse Oximetry: 97 Disposition - Clinical Impression Clinical Impression: URI (upper respiratory infection) - Patient ED Disposition Is Patient to be Admitted: No Counseled Patient/Family Regarding: Diagnosis, Need For Followup, Rx Given - Disposition Disposition: Routine/Home Disposition Time: 05:59 Condition: STABLE Additional Instructions: Dayquil Nyquil Fluids Rest Chicken soup Instructions: Viral Upper Respiratory Infection, Adult (DC), Cough, Runny Nose, and the Common Cold (DC) Forms: [employer] (Austrian)
== END 2019-01-21 06:19 | disposition home or self-care (01) ==
LOC: H.ER 02:55
DX: J06.9 Acute upper respiratory infection, unspecified (principal)

== ENCOUNTER 2019-02-14 09:48 | Emergency (ER) | payer MEDICARE ==
[2019-02-14 09:59] VITALS: O2SAT 96; BMI 29.9
--- NOTE | 2019-02-14 12:20 | ED PDOC ---
HPI: Skin/Bite Injury Time Seen by Provider: 02/14/19 10:18 Chief Complaint (Nursing): Abnormal Skin Integrity Chief Complaint (Provider): left thigh lesion Location Of Injury: Right: Back Additional Complaint(s): 48 y/o F with hx of schizoaffective disorder and DM who presents with left inner thigh lesion for the past few days. Area is mildly tender, but denies fever, drainage from area. Has a hx of similar infection that was treated with er ythromycin in the past but it would be intermittent and required drainage. Further admits to some vaginal discharge that is yellowish/white, abnormal for her. + urinary frequency but no dysuria or abdominal pain. Past Medical History Reviewed: Historical Data, Nursing Documentation, Vital Signs Vital Signs: Last Vital Signs Temp 97.5 F L 02/14/19 09:58 Pulse 88 02/14/19 09:58 Resp 15 02/14/19 09:58 BP 119/77 02/14/19 09:58 Pulse Ox 96 02/14/19 09:58 - Medical History PMH: Asthma, Bipolar Disorder, Depression, Diabetes, Schizophrenia Denies: Hepatitis, HIV, HTN, Chronic Kidney Disease, Seizures, Sexually Transmitted Disease - Family History Family History: States: Unknown Family Hx - Immunization History Hx Tetanus Toxoid Vaccination: No Hx Influenza Vaccination: Yes Hx Pneumococcal Vaccination: No - Home Medications Home Medications: Ambulatory Orders Medication Instructions Recorded Albuterol HFA [Ventolin HFA 90 1 puff INH PRN PRN 07/22/17 mcg/actuation (8 g)] Albuterol/Ipratropium [Duoneb 3 3 ml INH RQ6 PRN 07/25/17 mg/0.5 mg (3 ml) UD] Ziprasidone HCl [Geodon] 80 mg PO HS #15 capsule 07/25/17 Ziprasidone [Geodon] 60 mg PO DAILY #15 cap 07/25/17 metFORMIN [glucOPHAGE] 500 mg PO BIDWM tab 07/25/17 Azithromycin [Zithromax] 250 mg PO DAILY #6 tab 01/03/18 Benzonatate 200 mg PO TID PRN #20 capsule 01/03/18 Oseltamivir Phosphate [Tamiflu] 75 mg PO BID #10 capsule 01/03/18 Bacitracin OINT 1 applic TP BID 7 Days tube 02/14/19 - Allergies Allergies/Adverse Reactions: Allergies Allergy/AdvReac Type Severity Reaction Status Date / Time No Known Allergies Allergy Verified 01/21/19 03:16 Physical Exam - Reviewed Nursing Documentation Reviewed: Yes Vital Signs Reviewed: Yes - Physical Exam Appears: Positive for: Well Gastrointestinal/Abdominal: Positive for: Normal Exam Pelvic Exam: Positive for: External Exam Normal (exam performed in the presence of heat reader LANA Palacios), Blood (friable erythematous cervix, no discharge appreciated. ). Negative for: No Cerv. Motion Tender, No Masses, Discharge, Mass, Tender W/Cervical Motion, Tender Adnexa, Tender Uterus, Ulcers Extremity: Positive for: Other (left inner thigh with 1cm area of mild erythema with some fluctuance, no active drainage. 22 gauge needle inserted and no material aspirated with only small ooze of blood, no purulent drainage able to be expressed. ) - ECG O2 Sat by Pulse Oximetry: 96 Medical Decision Making Medical Decision Making: Urine dip, urine culture Urine dip: LE: neg; Nitrate: neg; Blood: trace Genital culture Patient advised to use Bacitracin on left inner thigh lesion and to apply warm compresses. Return instructions given. Further advised to follow up with overcoil stepper for routine exam given friable cervix. Disposition - Clinical Impression Clinical Impression: Sebaceous cyst - Patient ED Disposition Is Patient to be Admitted: No Counseled Patient/Family Regarding: Diagnosis, Need For Followup, Rx Given - [facility]position [facility] Disposition: Routine/Home Disposition Time: 13:11 Condition: STABLE Additional Instructions: Follow up with overcoil stepper for routine check up as you have a lesion in your vagina that may need further evaluation as it bleeds easily. Follow up with your primary care doctor for further evaluation of Left leg cyst. Use Bacitracin on area to prevent infection. Apply warm compresses to left thigh. Return to ER if you develop worsening redness, pus drainage, fevers. Prescriptions: Bacitracin OINT 1 applic TP BID 7 Days tube Instructions: Epidermal Cyst (DC) Forms: [employer] (Namibian) Print Language: SALVADOREAN
[2019-02-14 13:31] VITALS: BP 122/70; PULSE 79; RESP 16; TEMP 97.6
== END 2019-02-14 13:20 | disposition home or self-care (01) ==
LOC: H.ER 09:48
DX: L72.3 Sebaceous cyst (principal); E11.9 Type 2 diabetes mellitus without complications; Z86.59 Personal history of other mental and behavioral disorders; J45.909 Unspecified asthma, uncomplicated; N89.8 Other specified noninflammatory disorders of vagina; Z79.84 Long term (current) use of oral hypoglycemic drugs